=== PATIENT | female | born 1950 | race Caucasian/White ===

== ENCOUNTER → 2017-03-17 | Outpatient (CLI) | payer MEDICARE, OTHER | LOC: MC.RAD 13:37 | DX: Z12.31 Encounter for screening mammogram for malignant neoplasm of breast (principal) ==

== ENCOUNTER → 2018-05-04 | Outpatient (CLI) | payer MEDICARE, OTHER | LOC: MC.RAD 04-22 08:40 | DX: Z12.31 Encounter for screening mammogram for malignant neoplasm of breast (principal) ==

== ENCOUNTER → 2019-08-02 | Outpatient (CLI) | payer MEDICARE, OTHER | LOC: MC.RAD 12:51 | DX: Z12.31 Encounter for screening mammogram for malignant neoplasm of breast (principal) ==

== ENCOUNTER → 2019-08-04 | Outpatient (CLI) | payer MEDICARE, OTHER | LOC: COL.RAD 12:12 | DX: Z12.31 Encounter for screening mammogram for malignant neoplasm of breast (principal); I71.00 Dissection of unspecified site of aorta; K44.9 Diaphragmatic hernia without obstruction or gangrene; Z98.890 Other specified postprocedural states | CPT/HCPCS: Q9967 ==

== ENCOUNTER → 2019-10-26 | Outpatient (CLI) | payer MEDICARE, OTHER | LOC: MC.RAD 14:00 | DX: R92.2 Inconclusive mammogram (principal); N63.10 Unspecified lump in the right breast, unspecified quadrant | CPT/HCPCS: G0279 ==

== ENCOUNTER → 2020-07-09 | Outpatient (CLI) | payer MEDICARE | LOC: COL.RAD 13:42 | DX: I71.2 Thoracic aortic aneurysm, without rupture (principal); M89.9 Disorder of bone, unspecified; K44.9 Diaphragmatic hernia without obstruction or gangrene; Z98.890 Other specified postprocedural states | CPT/HCPCS: Q9967 ==

== ENCOUNTER → 2021-01-08 | Outpatient (CLI) | payer MEDICARE, OTHER | LOC: COL.RAD 12:36 | DX: I71.2 Thoracic aortic aneurysm, without rupture (principal); J84.10 Pulmonary fibrosis, unspecified; K44.9 Diaphragmatic hernia without obstruction or gangrene; M89.9 Disorder of bone, unspecified | CPT/HCPCS: Q9967 ==

== ENCOUNTER → 2021-09-17 | Outpatient (CLI) | payer MEDICARE, OTHER ==
[2021-09-17 13:13] LABS: CALCIUM 9.8 mg/dL (8.4-10.2); CREATININE, serum 1.18 mg/dL (0.57-1.11); POTASSIUM 4.8 mmol/L (3.5-4.5)
== END ==
LOC: COL.RAD 12:33 → COL.LAB 12:33 → COL.RAD 13:00
PROVIDERS: Internal Medicine Cardiovascular Disease
DX: C79.51 Secondary malignant neoplasm of bone (principal); I71.2 Thoracic aortic aneurysm, without rupture; Z86.79 Personal history of other diseases of the circulatory system; Z98.890 Other specified postprocedural states
CPT/HCPCS: Q9967

== ENCOUNTER 2022-12-26 15:34 | Emergency (ER) | payer MEDICARE, OTHER ==
[~2022-12-26] VITALS: Ht 167.6 cm; Wt 61.4 kg
[~2022-12-26 15:34] MED LIST: ALDACTONE 25MG25 M1 PO
[2022-12-26 15:36] VITALS: TEMP 96.2
[2022-12-26 15:59] LABS: BASO % 0.2 % (0.0-2.0); EOS # 0.2 K/mm3 (0.0-0.7); EOS % 2.8 % (0.0-4.0); GRAN # 3.4 K/mm3 (1.4-6.5); GRAN % 62.5 % (42.2-75.2); HEMOGLOBIN 11.3 g/dl (12.5-16.0); LYMPH # 1.3 K/mm3 (1.2-3.4); LYMPH % 23.9 % (20.0-51.0); MEAN CELL VOLUME 84 fl (80.0-100.0); MEAN CORPUSCULAR HEMOGLOBIN 28 pg (27-31); MEAN CORPUSCULAR HGB CONC 33 g/dl (33.0-37.0); MEAN PLATELET VOLUME 8.7 fl (7.4-10.4); MONO # 0.6 K/mm3 (0.1-0.6); MONO % 10.4 % (1.7-9.3); PLATELET COUNT 184 K/mm3 (130-400); RED BLOOD COUNT 4.02 M/mm3 (4.10-5.30); REDCELL DISTRIBUTION WIDTH-CV 14.5 % (11.5-14.5)
[2022-12-26 16:00] LABS: HEMATOCRIT 33.9 % (37.0-47.0)
[2022-12-26 16:16] LABS: ALANINE AMINOTRANSFERASE 43 U/L (0-55); ALBUMIN 3.6 gm/dL (3.4-4.8); ALKALINE PHOSPHATASE 93 U/L (40-150); ANION GAP 11 mmol/L (7-16); AST,SGOT 30 U/L (5-34); BILIRUBIN,TOTAL 0.5 mg/dL (0.2-1.2); BLOOD UREA NITROGEN 24 mg/dL (10-20); CALCIUM 9.1 mg/dL (8.4-10.2); CARBON DIOXIDE 21 mmol/L (23-31); CHLORIDE 97 mmol/L (98-107); CREATININE, serum 0.94 mg/dL (0.57-1.11); GLUCOSE 103 mg/dL (70-99); SODIUM 129 mmol/L (136-145); TOTAL PROTEIN 6.5 gm/dL (6.2-8.1)
[2022-12-26 16:23] LABS: TROPONIN-I < 0.010 ng/mL (0.00-0.033)
[2022-12-26 17:38] VITALS: BP 113/47; PULSE 64
== END 2022-12-26 17:52 | disposition home or self-care (01) ==
LOC: COL.ER 15:34
PROVIDERS: Physician Assistant
DX: D64.9 Anemia, unspecified (principal); I49.3 Ventricular premature depolarization; I11.9 Hypertensive heart disease without heart failure; R79.1 Abnormal coagulation profile; C79.81 Secondary malignant neoplasm of breast; Z79.899 Other long term (current) drug therapy
CPT/HCPCS: J7120; Q9967